=== PATIENT | male | born 1980 | race Caucasian/White ===

== ENCOUNTER 2018-04-23 10:12 | Emergency (ER) | payer OTHER ==
[2018-04-23] MEDS: DIPHTH/TET/ACEL PERTUSS (ADULT) 0.5 ML VIAL IM* (10:38)
[2018-04-23] MEDS: IBUPROFEN 800 MG TAB PO (10:39)
== END 2018-04-23 12:00 | disposition home or self-care (01) ==
LOC: E/R 10:12
DX: S01.511A Laceration without foreign body of lip, initial encounter (principal); J45.909 Unspecified asthma, uncomplicated; V43.02XA Car driver injured in collision with other type car in nontraffic accident, initial encounter; Z23 Encounter for immunization
CPT/HCPCS: 71045; 73130-RT; 90471; 90715; 99284-25